=== PATIENT | female | born 1985 | race Hispanic/Latino ===

== ENCOUNTER 2017-11-17 16:27 | Emergency (ER) | payer OTHER ==
[~2017-11-17] VITALS: Ht 149.9 cm; Wt 68.0 kg
[2017-11-17] MEDS ORDERED: IBUPROFEN 600 MG TAB PO STA (16:49)
[2017-11-17] MEDS ORDERED: TAMIFLU75 MG PO (16:50)
[2017-11-17] MEDS ORDERED: AZITHROMYCIN250 MG PO ×2 (16:50→16:56)
[2017-11-17] MEDS ORDERED: IBUPROFEN 600 MG TAB ONE (16:54)
== END 2017-11-17 17:18 | disposition home or self-care (01) ==
LOC: ER 16:27
DX: R50.9 Fever, unspecified (principal); J00 Acute nasopharyngitis [common cold]; J02.0 Streptococcal pharyngitis; F17.210 Nicotine dependence, cigarettes, uncomplicated